=== PATIENT | female | born 1975 | race Caucasian/White ===

== ENCOUNTER 2019-08-09 09:05 | Emergency (ER) | payer SELFPAY ==
[2019-08-09] MEDS ORDERED: KETOROLAC TROMETHAMINE INJ/PF 30 MG/1 ML SDV IV ONE (09:45)
[2019-08-09] MEDS ORDERED: DIPHENHYDRAMINE HCL 50 MG/ML VIAL IV ONE (09:45)
[2019-08-09] MEDS ORDERED: NORMAL SALINE 1000 ML 1,000 ML IV ONE (09:46)
[2019-08-09] MEDS ORDERED: METOCLOPRAMIDE HCL INJ/PF 10 MG/2 ML SDV IV ONE (09:47)
--- NOTE | 2019-08-09 09:47 | ER Document Report ---
ED Medical Screen (RME) - General Chief Complaint: Migraine Stated Complaint: MIGRAINE/NAUSEA/VOMITING Time Seen by Provider: 08/09/19 09:38 Mode of Arrival: Ambulatory Information source: Patient Notes: 44-year-old female patient presenting to the emergency department chief complaint of migraine headache. Patient reports history of migraines, states this headache started approximately 1 week ago and feels the same as her usual migraines. Patient reports pain is on the right side of her head, reports nausea, vomiting, photophobia, phonophobia. She reports that the migraine had a gradual onset. I have greeted and performed a rapid initial assessment of this patient. A comprehensive ED assessment and evaluation of the patient, analysis of test results and completion of the medical decision making process will be conducted by additional ED providers. I have specifically instructed the patient or family members with the patient to immediately return to any nursing staff should anything change in the patient's condition or with their chief complaint. TRAVEL OUTSIDE OF THE [place] IN LAST 30 DAYS: No - Related Data Allergies/Adverse Reactions: prochlorperazine [From Compazine] Allergy (Verified 08/09/19 09:45) tramadol [From Ultram] Allergy (Verified 08/09/19 09:45) Home Medications: Fioricet. Zofran. Dilaudid Physical Exam - Vital signs Vitals: Temp Pulse Resp BP Pulse Ox 98.5 F 103 H 16 91/68 L 99 08/09/19 09:20 08/09/19 09:20 08/09/19 09:20 08/09/19 09:20 08/09/19 09:20 Course - Vital Signs Vital signs: Temp Pulse Resp BP Pulse Ox 98.5 F 103 H 16 91/68 L 99 08/09/19 09:20 08/09/19 09:20 08/09/19 09:20 08/09/19 09:20 08/09/19 09:20
[2019-08-09] MEDS ORDERED: HYDROXYZINE HCL INJ 50 MG/1 ML VIAL IM ONE (11:47)
--- NOTE | 2019-08-09 11:51 | ER Document Report ---
ED Headache - General Chief Complaint: Migraine Stated Complaint: MIGRAINE/NAUSEA/VOMITING Time Seen by Provider: 08/09/19 09:38 Mode of Arrival: Ambulatory Notes: 44-year-old female presents to the emergency department with a history of migraine headaches. She has a history of allergy to Compazine and tramadol. States that she in the past have responded to Toradol, Zofran, Benadryl. States that she is already been given Toradol today with no improvement. She denies fever, chills, she has nauseated without vomiting. And she does note photophobia. This headache is similar to previous migraines that she has had. There is no focal neurologic findings. TRAVEL OUTSIDE OF THE [place] IN LAST 30 DAYS: No - Related Data Allergies/Adverse Reactions: prochlorperazine [From Compazine] Allergy (Verified 08/09/19 09:45) tramadol [From Ultram] Allergy (Verified 08/09/19 09:45) Home Medications: Fioricet. Zofran. Dilaudid Past Medical History - General Information source: Patient - Social History Smoking Status: Unknown if Ever Smoked Patient has suicidal ideation: No Patient has homicidal ideation: No Review of Systems - Review of Systems Notes: Constitutional: Negative for fever. HENT: Negative for sore throat. Eyes: Negative for visual changes. Cardiovascular: Negative for chest pain. Respiratory: Negative for shortness of breath. Gastrointestinal: + Nausea, no vomiting Genitourinary: Negative for dysuria. Musculoskeletal: Negative for back pain. Skin: Negative for rash. Neurological: + Headaches, + photophobia, no weakness or numbness. 10 point ROS negative except as marked above and in HPI. Physical Exam - Vital signs Vitals: Temp Pulse Resp BP Pulse Ox 98.5 F 103 H 16 91/68 L 99 08/09/19 09:20 08/09/19 09:20 08/09/19 09:20 08/09/19 09:20 08/09/19 09:20 - Notes Notes: PHYSICAL EXAMINATION: Physical Exam: General: Well-nourished well-developed woman complaining of headache in no acute distress HEENT: NC/AT, pupils equal round and reactive to light, MM moist,nares clear, Neck: supple, no adenopathy, no masses. Lungs: clear, no wheezing, no rales no rhonchi CVS: Regular rate and rhythm no murmur gallop or rub Abdomen: Soft active nontender, no masses, no hepatosplenomegaly Ext: No edema clubbing or cyanosis. Neuro: Alert and responsive, moving all 4 extremities on command, cranial nerves intact. Skin: Intact no open lesions, no rash PSYCH: Normal mood, normal affect. Course - Re-evaluation Re-evalutation: 08/09/19 13:28 Patient with headache presenting to the emergency department, she is received a cocktail which includes Toradol, Benadryl, Reglan and little or no improvement. She was given 75 mg of hydroxyzine IM and after some discussion patient is being discharged from the emergency department. 08/09/19 15:03 Patient had refused the Decadron, Ativan and Imitrex.. She is wanting to leave and as I explained to the patient I cannot treat her headache with opiate medications. - Vital Signs Vital signs: Temp Pulse Resp BP Pulse Ox 98.5 F 103 H 17 103/71 97 08/09/19 09:20 08/09/19 09:20 08/09/19 13:01 08/09/19 13:00 08/09/19 13:01 Discharge - Discharge Clinical Impression: Migraine headache Disposition: HOME, SELF-CARE Instructions: Headache ([facility]), Migraine Headache ([facility]) Additional Instructions: Please follow-up with your doctors as needed, please continue your usual medications.
[2019-08-09] MEDS ORDERED: SUMATRIPTAN SUCCINATE INJ/PF 6 MG/0.5 ML SDV SUBCUT ONE (13:32)
[2019-08-09] MEDS ORDERED: LORAZEPAM INJ 2 MG/1 ML VIAL IV ONE (13:33)
[2019-08-09] MEDS ORDERED: DEXAMETHASONE SOD PHOS INJ 10 MG/1 ML VIAL IV ONE (13:35)
[2019-08-09 15:26] VITALS: BP 98/66
== END 2019-08-09 15:25 | disposition home or self-care (01) ==
LOC: ER 09:05
DX: G43.909 Migraine, unspecified, not intractable, without status migrainosus (principal); R11.0 Nausea; H53.149 Visual discomfort, unspecified; Z88.8 Allergy status to other drugs, medicaments and biological substances; Z79.899 Other long term (current) drug therapy
CPT/HCPCS: 99283; 96372; 96361; 96374; 96375; J1200; J3410; J1885; J2765; J7030

== ENCOUNTER 2019-10-25 06:07 | Emergency (ER) | payer BC ==
[2019-10-25] MEDS ORDERED: NORMAL SALINE 1000 ML 1,000 ML IV ONE (07:06)
[2019-10-25] MEDS ORDERED: DIPHENHYDRAMINE HCL 50 MG/ML VIAL IV ONE (07:07)
[2019-10-25] MEDS ORDERED: METOCLOPRAMIDE HCL INJ/PF 10 MG/2 ML SDV IV ONE (07:07)
[2019-10-25] MEDS ORDERED: KETOROLAC TROMETHAMINE INJ/PF 30 MG/1 ML SDV IV ONE (07:07)
[2019-10-25 08:03] LABS: ABSOLUTE BASOPHILS # (AUTO) 0.1 10^3/uL (0.0-0.2); ABSOLUTE EOSINOPHILS # (AUTO) 0.1 10^3/uL (0.0-0.6); ABSOLUTE MONOCYTES (AUTO) 0.4 10^3/uL (0.1-1.4); ABSOLUTE NEUT (AUTO) 9.6 10^3/uL (1.7-8.2); BASOPHILS % (AUTO) 0.4 % (0-2); EOSINOPHILS % (AUTO) 0.9 % (0-6); HEMATOCRIT 41.7 % (36.0-47.0); HEMOGLOBIN 14.2 g/dL (12.0-15.5); LYMPHOCYTES % (AUTO) 22.5 % (13-45); MEAN CORPUSCULAR HEMOGLOBIN 31.1 pg (27.0-33.4); MEAN CORPUSCULAR VOLUME 91 fl (80-97); MONOCYTES % (AUTO) 3.2 % (3-13); PLATELET COUNT 287 10^3/uL (150-450); RED BLOOD COUNT 4.56 10^6/uL (3.72-5.28); TOTAL CELLS COUNTED % (AUTO) 100 %; WHITE BLOOD COUNT 13.2 10^3/uL (4.0-10.5)
[2019-10-25 08:27] LABS: ALKALINE PHOSPHATASE 112 U/L (38-126); ANION GAP 8 (5-19); ASPARTATE AMINO TRANSFERASE 21 U/L (14-36); BILIRUBIN,DIRECT 0.3 mg/dL (0.0-0.4); BILIRUBIN,TOTAL 0.3 mg/dL (0.2-1.3); BLOOD UREA NITROGEN 17 mg/dL (7-20); CALCIUM 9.2 mg/dL (8.4-10.2); CARBON DIOXIDE 20 mmol/L (22-30); CHLORIDE 105 mmol/L (98-107); GLUCOSE 397 mg/dL (75-110); POTASSIUM 4.6 mmol/L (3.6-5.0); TOTAL PROTEIN 6.7 g/dL (6.3-8.2)
[2019-10-25 08:29] LABS: APPEARANCE,URINE CLEAR; BILIRUBIN,URINE NEGATIVE (NEGATIVE); COLOR,URINE YELLOW; GLUCOSE, URINE >=500 mg/dL (NEGATIVE); KETONES,URINE NEGATIVE (NEGATIVE); LEUKOCYTE ESTERASE,URINE NEGATIVE (NEGATIVE); NITRITE,URINE NEGATIVE (NEGATIVE); PROTEIN,URINE NEGATIVE (NEGATIVE); URINE SPECIFIC GRAVITY 1.036; UROBILINOGEN,URINE NEGATIVE mg/dL (<2.0)
--- NOTE | 2019-10-25 09:02 | ER Document Report ---
Entered by ELLEN PEÑA SCRIBE 10/25/19 0802 Acting as scribe for:SAQIB TORREZ DO ED GI/ - General Chief Complaint: Abdominal Pain Stated Complaint: ABDOMINAL PAIN Time Seen by Provider: 10/25/19 06:55 Information source: Patient Notes: This 44-year-old female patient who recently moved to this area from [place] presents to the emergency department today with complaints of left upper quadrant abdominal pain that began at 3:00 this morning. Patient states she has a history of pancreatitis and her pain today feels similar to her previous pancreatitis flareups. Patient was seen in this emergency department recently for a migraine headache and she signed out AGAINST MEDICAL ADVICE as she was not satisfied that we would not treat her headache with opiate pain medications. When reviewing the [place] controlled substance database, the patient actually has 3 separate accounts under her name, due to her hyphenated last name. She has been getting 4 mg Dilaudid tablets quite regularly from a family doctor in [place], [place] which she elects not to mention. These medications also do not show up when looking through her [facility] records. Patient has had nausea but denies vomiting. Patient also denies fevers or urinary symptoms. TRAVEL OUTSIDE OF THE [place] IN LAST 30 DAYS: No - Related Data Allergies/Adverse Reactions: prochlorperazine [From Compazine] Allergy (Verified 08/09/19 09:45) tramadol [From Ultram] Allergy (Verified 08/09/19 09:45) Home Medications: Metoprolol. Levamyi. Dexomethasone. Gabapentin. Clopidogrel. Atorvastatin. Melatonin. Fioricet Past Medical History - General Information source: Patient - Social History Smoking Status: Current Every Day Smoker Cigarette use (# per day): Yes Chew tobacco use (# tins/day): No Frequency of alcohol use: Social Lives with: Family Family History: Reviewed & Not Pertinent Patient has suicidal ideation: No Patient has homicidal ideation: No Endocrine Medical History: Reports: Hx Diabetes Mellitus Type 2 - Quite poorly controlled GI Medical History: Reports: Hx Pancreatitis Review of Systems - Review of Systems Constitutional: denies: Fever EENT: No symptoms reported Cardiovascular: No symptoms reported Respiratory: No symptoms reported Gastrointestinal: See HPI, Abdominal pain, Nausea. denies: Vomiting Genitourinary: denies: Dysuria Female Genitourinary: No symptoms reported Musculoskeletal: No symptoms reported Skin: No symptoms reported Hematologic/Lymphatic: No symptoms reported Neurological/Psychological: No symptoms reported -: Yes All other systems reviewed and negative Physical Exam - Vital signs Vitals: Temp Pulse Resp BP Pulse Ox 98.5 F 112 H 18 90/76 L 97 10/25/19 06:20 10/25/19 06:20 10/25/19 06:20 10/25/19 06:20 10/25/19 06:20 - Notes Notes: Physical Exam: General: Alert, appears well. HEENT: Normocephalic. Atraumatic. PERRL. Extraocular movements intact. Oropharynx clear. Poor dentition throughout, mostly edentulous, dental caries. Dry mucous membranes. Neck: Supple. Non-tender. Respiratory: No respiratory distress. Clear and equal breath sounds bilaterally. Cardiovascular: Regular rate and rhythm. Abdominal: Periumbilical tenderness palpation. No distension. Normal Bowel Sounds. Back: No gross abnormalities. Extremities: Moves all four extremities. Upper extremities: Normal inspection. Normal ROM. Lower extremities: Normal inspection. No edema. Normal ROM. Neurological: Normal cognition. AAOx4. Normal speech. Psychological: Normal affect. Normal Mood. Skin: Warm. Dry. Normal color. Course - Re-evaluation Re-evalutation: 10/25/19 09:10 MDM 44 year old concerned she may have pancratitis. Exam here is reassuring. Labs show increased BS but no acidosis. Pain is improved here. Discussed diet modification and follow up and return here precautions and she expressed understanding. - Vital Signs Vital signs: Temp Pulse Resp BP Pulse Ox 98.1 F 72 16 104/59 L 95 10/25/19 09:49 10/25/19 09:49 10/25/19 09:49 10/25/19 09:49 10/25/19 09:49 - Laboratory Result Diagrams: 10/25/19 07:50 10/25/19 07:50 Laboratory results interpreted by me: 10/25/19 10/25/19 10/25/19 07:50 07:50 08:10 WBC 13.2 H RDW 15.0 H Absolute Neuts (auto) 9.6 H Sodium 132.6 L Carbon Dioxide 20 L Glucose 397 H Urine Glucose (UA) >=500 H Urine Blood SMALL H Discharge - Discharge Clinical Impression: Epigastric pain Condition: Good Disposition: HOME, SELF-CARE Instructions: Abdominal Pain ([facility]), Antinausea Medication ([facility]), Family Phys icians / Practices, Pain Medication Injection ([facility]), Toradol Injection ([facility]) Additional Instructions: See your doctor in follow up. Call today. Return here for chest pain, shortness of breath or other problems or concerns. Prescriptions: Dicyclomine HCl [Bentyl 10 mg Capsule] 1 cap PO TID #15 cap Ondansetron [Zofran Odt 4 mg Tablet] 1 - 2 tab PO Q4H PRN #15 tab.rapdis PRN Reason: For Nausea/Vomiting I personally performed the services described in the documentation, reviewed and edited the documentation which was dictated to the scribe in my presence, and it accurately records my words and actions.
[2019-10-25] MEDS ORDERED: INSULIN REG, HUMAN 100 UNIT/ML 3 ML VIAL (PYX) IV ONE (09:09)
[2019-10-25] MEDS ORDERED: ONDANSETRON HCL INJ/PF 4 MG/2 ML SDV IV ONE (09:09)
[2019-10-25] MEDS ORDERED: MORPHINE SULFATE 10 MG/ML INJ IV ONE (09:09)
[2019-10-25 09:51] VITALS: BP 104/59
== END 2019-10-25 09:50 | disposition home or self-care (01) ==
LOC: ER 06:07
DX: R10.13 Epigastric pain (principal); R11.0 Nausea; F17.210 Nicotine dependence, cigarettes, uncomplicated; E11.9 Type 2 diabetes mellitus without complications
CPT/HCPCS: 99284; 96361; 96374; 96375; 36415; 83605; 83690; 85025; 80053; 81001; J1200; J1885; J2765; J2270; J1815; J2405; J7030